=== PATIENT | male | born 1965 | race Caucasian/White ===

== ENCOUNTER 2020-09-27 22:46 | Emergency (ER) | payer OTHER ==
[~2020-09-27] VITALS: Ht 172.7 cm; Wt 75.9 kg
--- NOTE | 2020-09-27 23:18 | PHYS DOC ---
General Adult EDM: Chief Complaint: BLOODY STOOL HPI: HPI: Patient is a 55-year-old male coming in for blood in his stool with diarrhea starting about an hour prior to arrival. Patient states the blood started off initially as bright red and then turned to dark red, did not see any clots and denies any tarry stools. Patient states he otherwise felt well. Denies any alcohol use, denies any chronic NSAID use. Patient does state that he has a history of diverticulosis. No fevers, vomiting, cough. Denies any history of constipation. Denies any rectal pain with the bowel movements. States he has a history of hypothyroid is currently taking Synthroid, denies any history of anticoagulant use. Has not had a colonoscopy denies any cancer history. Review of Systems: Review of Systems: Constitutional: Denies fever or chills Eyes: Denies change in visual acuity HENT: Denies nasal congestion or sore throat Respiratory: Denies cough or shortness of breath Cardiovascular: Denies chest pain or edema GI: Denies abdominal pain, nausea, vomiting, bloody stools or diarrhea : Denies dysuria Musculoskeletal: Denies back pain or joint pain Integument: Denies rash Neurologic: Denies headache, focal weakness or sensory changes Endocrine: Denies polyuria or polydipsia Lymphatic: Denies swollen glands Psychiatric: Denies depression or anxiety Current Medications: Current Meds: Current Medications Medications (Trade) Dose Ordered Sig/Jeremy Start Time Stop Time Status Last Admin Dose Admin Sodium Chloride 500 ml @ 0 mls/hr 1X ONCE 09/27/20 23:15 09/27/20 23:16 UNV Physical Exam: PE: Constitutional: Well developed, well nourished, no acute distress, non-toxic appearance. [] HENT: Normocephalic, atraumatic, bilateral external ears normal, oropharynx moist, no oral exudates, nose normal. [] Eyes: PERRLA, EOMI, conjunctiva normal, no discharge. [] Neck: Normal range of motion, no tenderness, supple, no stridor. [] Cardiovascular:Heart rate regular rhythm, no murmur [] Lungs & Thorax: Bilateral breath sounds clear to auscultation [] Abdomen: Bowel sounds normal, soft, no tenderness, no masses, no pulsatile masses. [] Skin: Warm, dry, no erythema, no rash. [] Back: No tenderness, no CVA tenderness. [] Extremities: No tenderness, no cyanosis, no clubbing, ROM intact, no edema. [] Neurologic: Alert and oriented X 3, normal motor function, normal sensory function, no focal deficits noted. [] Psychologic: Affect normal, judgement normal, mood normal. [] Rectal exam: Dried blood around rectum, no hemorrhoids or active bleeding. No polyps or internal hemorrhoids on digital rectal exam, no fresh blood, small amount of dark red blood, no stool. EKG: EKG: [] Radiology/Procedures: Radiology/Procedures: INDICATION: Reason: Lower GI bleeding today Omni 300 60cc / Spl. Instructions: / History: . COMPARISON: None. TECHNIQUE: Axial CT images obtained through the abdomen and pelvis with contrast. One or more of the following individualized dose reduction techniques were utilized for this examination: 1. Automated exposure control; 2. Adjustment of the mA and/or kV according to patient size; 3. Use of iterative reconstruction technique. FINDINGS: Scattered calcific atherosclerosis without abdominal aortic aneurysm. Fat- containing inguinal hernias. Liver is mildly low density. Nonspecific but can be seen with fatty infiltration. Multiple low-density lesions within the liver with the largest one having the appearance of cysts and others too small to characterize. No peripancreatic fluid collection. Spleen unremarkable. Distention of left renal pelvis. Urinary bladder is partially distended. 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 No right-sided hydronephrosis. Colonic diverticulosis. No periappendiceal inflammatory changes. No dilated loops of bowel to suggest obstruction. Scoliotic curvature of the spine with degenerative changes. IMPRESSION: * No evidence of bowel obstruction or appendicitis. * Distention of the left renal collecting system which may be secondary to narrowing at the left UPJ. * Liver is low density which can be seen with fatty infiltration. [] Heart Score: Risk Factors: Risk Factors: DM, Current or recent (<one month) smoker, HTN, HLP, family history of CAD, obesity. Risk Scores: Score 0 - 3: 2.5% MACE over next 6 weeks - Discharge Home Score 4 - 6: 20.3% MACE over next 6 weeks - Admit for Clinical Observation Score 7 - 10: 72.7% MACE over next 6 weeks - Early Invasive Strategies Course & Med Decision Making: Course & Med Decision Making Pertinent Labs and Imaging studies reviewed. (See chart for details) No signs of active bleeding on rectal exam and no bloody stools in emergency department. Vital signs remained stable with a hemoglobin of 14.4. Discussed with patient to follow-up with his primary care for evaluation of dilation of renal pelvis and GI. [] Dragon Disclaimer: Dragon Disclaimer: This electronic medical record was generated, in whole or in part, using a voice recognition dictation system. Departure Departure: Impression: Primary Impression: Diverticulosis of intestine with bleeding Disposition: 01 DC HOME SELF CARE/HOMELESS Condition: STABLE Referrals: LYDIA PADRON DO (PCP) Patient Instructions: Diverticulosis PATRICIA DAWKINS MD Sep 27, 2020 23:18
[2020-09-27] MEDS ORDERED: IV NORMAL SALINE 500ML 500 ML IV ONE (23:30)
[2020-09-28 00:03] LABS: BASO # 0.1 x10^3/uL (0.0-0.2); BASO % 1 % (0-3); EOS # 0.2 x10^3/uL (0.0-0.7); EOS % 2 % (0-3); HEMATOCRIT 42.1 % (39.0-53.0); HEMOGLOBIN 14.4 g/dL (13.0-17.5); LYMPH # 2.7 x10^3/uL (1.0-4.8); LYMPH % 31 % (24-48); MEAN CORPUSCULAR HEMOGLOBIN 31 pg (25-35); MEAN CORPUSCULAR HGB CONC 34 g/dL (31-37); MEAN CORPUSCULAR VOLUME 91 fL (79-100); MONO # 0.6 x10^3/uL (0.0-1.1); MONO % 6 % (0-9); NEUT # 5.3 x10^3uL (1.8-7.7); NEUT % 60 % (31-73); PLATELET COUNT 250 x10^3/uL (140-400); RED BLOOD COUNT 4.63 x10^6/uL (4.30-5.70); RED CELL DISTRIBUTION WIDTH 12.9 % (11.5-14.5); WHITE BLOOD COUNT 8.9 x10^3/uL (4.0-11.0)
[2020-09-28 00:13] LABS: CALCIUM 8.3 mg/dL (8.5-10.1); CREATININE 1.6 mg/dL (0.7-1.3); GFR 44.9; POTASSIUM 3.8 mmol/L (3.5-5.1)
[2020-09-28 00:13] LABS: FECAL OB PT POSITIVE (NEG)
[2020-09-28 00:19] LABS: ALBUMIN 3.6 g/dL (3.4-5.0); ALBUMIN/GLOBULIN RATIO 1.2 (1.0-1.7); TOTAL BILIRUBIN 0.3 mg/dL (0.2-1.0); TOTAL PROTEIN 6.7 g/dL (6.4-8.2)
[2020-09-28] MEDS ORDERED: IOHEXOL 300 MG/ML 75 ML VIAL. IV ONE (00:30)
[2020-09-28] MEDS ORDERED: CONTRAST GIVEN. MC PRN (00:30)
--- NOTE | 2020-09-28 01:13 | RAD ---
INDICATION: Reason: Lower GI bleeding today Omni 300 60cc / Spl. Instructions: / History: . COMPARISON: None. TECHNIQUE: Axial CT images obtained through the abdomen and pelvis with contrast. One or more of the following individualized dose reduction techniques were utilized for this examinat ion: 1. Automated exposure control; 2. Adjustment of the mA and/or kV according to patient size; 3 . Use of iterative reconstruction technique. FINDINGS: Scattered calcific atherosclerosis without abdominal aortic aneurysm. Fat-containing inguinal hernias . Liver is mildly low density. Nonspecific but can be seen with fatty infiltration. Multiple low-density lesions within the liver with the largest one having the appearance of cysts and others too small to characterize. No peripancreatic fluid collection. Spleen unremarkable. Distention of left renal pelvis. Urinary bladder is partially distended. Partial duplication of left renal collecting system and proxi mal ureter. No right-sided hydronephrosis. Colonic diverticulosis. No periappendiceal inflammatory changes. No dilated loops of bowel to suggest obstruction. Scoliotic curvature of the spine with degenerative changes. IMPRESSION: * No evidence of bowel obstruction or appendicitis. * Distention of the left renal collecting system which may be secondary to narrowing at the left UPJ . * Liver is low density which can be seen with fatty infiltration. Electronically signed by: Malcolm Holden MD (09/28/2020 1:11 AM) [id number]
[2020-09-28 01:18] VITALS: BP 101/58
== END 2020-09-28 01:25 | disposition home or self-care (01) ==
LOC: ER 22:46
DX: K57.31 Diverticulosis of large intestine without perforation or abscess with bleeding (principal)
CPT/HCPCS: 36415; 74177; 80053; 82274; 83690; 85025; 96360; 99285; J7040; Q9967